=== PATIENT | female | born 1990 | race Caucasian/White ===

== ENCOUNTER → 2017-07-02 22:02 | Observation (INO) ==
--- NOTE | 2017-07-02 17:31 | OB/GYN Progress Note ---
Date of Encounter: 07/03/17 Time of Encounter: 06:30 - Assessment and Plan (1) Elevated blood pressure affecting in third trimester, antepartum Status: Acute Plan: - PIH labs negative - BP was not elevated here - instructions given to hydrate - Patient stable and safe for discharge - Instructions given for patient to continue was normal f/u with Dr. Mckeon as previously scheduled (2) 29 weeks gestation of Status: Acute (3) NST (non-stress test) reactive Status: Acute FHT baseline= 130, accelerations present (4) Clubbing of fingers Status: Acute clubbing of fingers with palmar erythema: unsure if palmar erythema is 2/2 to or associated with the clubbing of fingers - TSH to rule of hyperthyoidism -TSH normal - LOKESH and ESR for possible sarcoidosis/ other rheumatologic diseases - ESR normal for , LOKESH pending - Discussed with Dr. Bangura and he will discuss with the specialist to see which of them would be best to consult for this (5) Palmar erythema Status: Acute see above (6) and not yet delivered in third trimester Status: Acute Subjective - Subjective Principal diagnosis: elevated blood pressure Interval history: Patient's 19-year-old female at 29+1 weeks presented to the labor and delivery after having an elevated blood pressure of 140/80 in the office. Patient denies currently dizziness, headache, vision changes, or abdominal pain. Patient has had some episodes of seeing spots when going from sitting to standing and Patient did report an episode of dizziness and her heart beating fast after laying back in a recliner last night. Patient reports active movement. Patient denies vaginal bleeding, contractions, leakage of fluid. Of note patient did mention that her fingertips have been red on all finger tips and the palms of her hands red for the past couple of months. She does have a 10 year hx of smoking. No alcohol use in the last 12 months. No past medical history. Agree with above Chava Bangura note: She is a 19-year-old 29+ weeks who was sent over from the office due to some elevated blood pressures. Patient's blood pressure was stable on labor and delivery and at time she was not complaining of any lightheadedness or dizziness or scotoma. Patient was noted to have clubbing of all of her digits and redness to the distal portion of each finger. Pulse ox obtained and the patient showed that she was running around 94-95% on room air. She was feeling lightheaded or dizzy. She is a 10 year 1 pack a day smoker but has no other cardiac or pulmonary history. She states this started about 2 months ago had mentioned it to her OB office but nothing is really been done yet. We did run this by the hospitalists to see if there is anything related to order bleed recommended getting a rheumatology consult and ordering a sedimentation rate and lokesh. All [facility] labs have come back normal all labs are within normal limits. We will discuss with her primary OB about possible referral for this abnormality either to pulmonology, rheumatology, but even maternal medicine. Antepartum ROS: movement normal Objective - Vital Signs Vital Signs: BP: 119/81, O2: 96, afebrile - Exam FHR: category 1 FHR comments: FHR baseline =130 Auscultation: bilateral: normal Abdomen: Present: normal appearance, soft Uterus: Present: normal Comments: Extremities: palmar erythema bilaterally, clubbing with erythema of every finger tip, pedal exam unremarkable.
[2017-07-02 18:15] LABS: Basophils % 0.3 %; Eosinophils # 0.3 K/mcL (0.0-0.6); Eosinophils % 1.6 %; Hematocrit 36.3 % (35.3-44.9); Hemoglobin 12.3 g/dL (11.5-15.4); Immature Granulocytes % 1.4 % (0-4); Lymphocytes # 3.5 K/mcL (0.6-4.6); Lymphocytes % 22.6 %; Mean Corpuscular HGB Conc 33.9 g/dL (31.6-35.5); Mean Corpuscular Hemoglobin 30.2 pg (28.0-33.3); Mean Corpuscular Volume 89.2 fL (83.0-100.0); Mean Platelet Volume 11.7 fL (9.4-12.4); Monocytes # 0.9 K/mcL (0.0-1.3); Monocytes % 5.6 %; Neutrophils # 10.5 K/mcL (1.6-8.9); Platelet Count 246 K/mcL (140-400); Red Blood Count 4.07 M/mcL (3.82-4.97); Red Cell Distribution Width 12.6 % (11.5-14.5); Segmented Neutrophils % 68.5 %
[2017-07-02 18:42] LABS: Amphetamine Screen,Urine Negative ng/mL (Cutoff=1000); Barbiturate Screen,Urine Negative ng/mL (Cutoff=200); Benzodiazepines Screen,Urine Negative ng/mL (Cutoff=200); Cannabinoid Screen,Urine Negative ng/mL (Cutoff = 50); Cocaine Screen,Urine Negative ng/mL (Cutoff= 300); Opiate Screen,Urine Negative ng/mL (Cutoff=300); Phencyclidine Screen,Urine Negative ng/mL (Cutoff=25)
[2017-07-02 20:19] LABS: Creatinine,Urine 381 mg/dL; Protein/Creatinine Ratio,Urine 0.07 mg/mg (0.00-0.20)
[2017-07-02 21:06] LABS: Alanine Aminotransferase 6 Units/L (7-52); Aspartate Amino Transferase 11 Units/L (13-39); BUN/Creatinine Ratio 19 (6-26); Blood Urea Nitrogen 8 mg/dL (6-20); Lactate Dehydrogenase 130 Units/L (140-271); Uric Acid 4.4 mg/dL (2.3-7.6); eGFR For African Americans > 60 (> 60); eGFR For Non-African Americans > 60 (> 60)
[2017-07-05 13:45] LABS: ANA IgG by ELISA NONE DETECTED (None Detected)
== END | disposition home or self-care (01) ==
LOC: 1NENULAB
PROVIDERS: ADMIT Obstetrics & Gynecology; ATTEND Obstetrics & Gynecology

== ENCOUNTER → 2017-08-14 12:30 | Observation (INO) ==
[2017-08-14 09:39] LABS: Bilirubin,Urine Negative (Negative); Blood,Urine Negative (Negative); Clarity,Urine Cloudy (Clear); Color,Urine Yellow (Yellow); Glucose,Urine (UA) Normal (Normal); Ketones,Urine Negative (Negative); Leukocyte Esterase,Urine Small (Negative); Nitrite,Urine Negative (Negative); PH,Urine 6.5 pH Units (5.0-8.0); Protein,Urine Negative (Neg-Trace); Specific Gravity,Urine 1.026 (1.010-1.025); Urobilinogen,Urine Normal (Normal)
[2017-08-14 09:42] LABS: Bacteria,Urine Many per hpf (None-Few); Hyaline Casts,Urine None Seen per lpf (None-Few); Squamous Epithelial Cell,Urine Many per lpf (None-Few); WBC,Urine 15-30 per hpf (0-3)
[2017-08-14 09:55] LABS: RBC,Urine 0-3 per hpf (0-3)
[2017-08-14 09:57] LABS: Amphetamine Screen,Urine Negative ng/mL (Cutoff=1000); Barbiturate Screen,Urine Negative ng/mL (Cutoff=200); Benzodiazepines Screen,Urine Negative ng/mL (Cutoff=200); Cannabinoid Screen,Urine Negative ng/mL (Cutoff = 50); Cocaine Screen,Urine Negative ng/mL (Cutoff= 300); Opiate Screen,Urine Negative ng/mL (Cutoff=300); Phencyclidine Screen,Urine Negative ng/mL (Cutoff=25)
--- NOTE | 2017-08-14 10:21 | OB/GYN Progress Note ---
Date of Encounter: 08/14/17 Time of Encounter: 10:11 - Assessment and Plan (1) 35 weeks gestation of Current Visit: Yes Status: Acute (2) CVA tenderness Current Visit: Yes Status: Acute CBC ordered 1 L LR bolus ordered (3) Clubbing of fingers Current Visit: No Status: Acute (4) UTI (urinary tract infection) during Current Visit: Yes Status: Acute discharge home with nitrofurantoin follow up as scheduled increase hydration labor precautions given ok to discharge Qualifiers: Trimester: third trimester Qualified Code(s): O23.43 - Unspecified infection of urinary tract in , third trimester (5) Back pain affecting in third trimester Current Visit: Yes Status: Acute Subjective - Subjective Interval history: Ms. Abraham is a 27 yo at 35 weeks + 2 days GA with an JESSICA of 09/16/17. She presents today with complaints of low back pain since last night and anterior abdominal cramping. She endorses good movement and denies contractions, leakage of fluid, vaginal bleeding, headache, right upper quadrant pain. She does complain of some mild dysuria with urgency, frequency, and incomplete emptying of her bladder. Antepartum ROS: new complaints, movement normal Objective - Vital Signs Vital Signs: Intake and Output 08/13/17 08/14/17 08/14/17 23:59 07:59 15:59 Other: Weight 68 kg Patient Weight 08/14/17 23:59 Weight 68 kg - Exam FHR: auscultation normal, category 1 Auscultation: bilateral: normal Abdomen: Present: normal appearance, soft, gravid Uterus: Present: normal Cervical dilation: 0 Cervix effacement: 40 station: -3 Comments: Patient's physical exam is significant for left-sided CVA tenderness - Labs Labs: Abnormal lab results Urine Clarity Cloudy (Clear) A 08/14/17 08:30 Ur Specific [place] 1.026 (1.010-1.025) H 08/14/17 08:30 Ur Leukocyte Esterase Small (Negative) H 08/14/17 08:30 Urine Microscopic WBC 15-30 per hpf (0-3) H 08/14/17 08:30 Ur Squamous Epith Cells Many per lpf (None-Few) H 08/14/17 08:30 Urine Bacteria Many per hpf (None-Few) H 08/14/17 08:30
[2017-08-14 11:09] LABS: Basophils % 0.3 %; Eosinophils # 0.3 K/mcL (0.0-0.6); Eosinophils % 1.9 %; Hemoglobin 10.9 g/dL (11.5-15.4); Lymphocytes # 3.4 K/mcL (0.6-4.6); Lymphocytes % 24.6 %; Mean Corpuscular HGB Conc 32.1 g/dL (31.6-35.5); Mean Corpuscular Hemoglobin 27.8 pg (28.0-33.3); Mean Corpuscular Volume 86.7 fL (83.0-100.0); Mean Platelet Volume 12.8 fL (9.4-12.4); Monocytes # 0.9 K/mcL (0.0-1.3); Monocytes % 6.7 %; Neutrophils # 8.9 K/mcL (1.6-8.9); Nucleated Red Blood Cells 0.1 /100 WBC (0); Platelet Count 241 K/mcL (140-400); Red Blood Count 3.92 M/mcL (3.82-4.97); Red Cell Distribution Width 13.1 % (11.5-14.5); Segmented Neutrophils % 65.5 %
[~2017-08-14 12:30] MED LIST: Ringers Solution, Lactated 1,000 ML IVC ONE
== END | disposition home or self-care (01) ==
LOC: 1NENULAB
PROVIDERS: ADMIT Obstetrics & Gynecology; ATTEND Obstetrics & Gynecology

== ENCOUNTER → 2017-08-21 21:18 | Observation (INO) ==
--- NOTE | 2017-08-21 19:19 | OB/GYN Progress Note ---
Date of Encounter: 08/21/17 Time of Encounter: 19:17 - Assessment and Plan (1) Fall (on) (from) other stairs and steps, initial encounter Current Visit: Yes Status: Acute Pt denies complaints at this time. Will monitor at least 4 hours from time of the fall. KB, CBC, and fibrinogen ordered. (2) 36 weeks gestation of Current Visit: Yes Status: Acute (3) Rh negative state in antepartum period Current Visit: Yes Status: Acute Subjective - Subjective Interval history: 27 year-old presenting at 36w2d s/p falling down 4-5 steps at around 1730 this evening. She slid down the steps on the left side of her back. She was evaluated in ER and found to have no significant injuries so she was sent to L&D for monitoring. She denies leaking, bleeding, cramping, or other complaints at this time. Good FM. Antepartum ROS: new complaints (s/p fall), movement normal, no loss of fluid, no vaginal bleeding, no contractions Objective - Vital Signs Vital Signs: Intake and Output 08/21/17 08/21/17 08/21/17 07:59 15:59 23:59 Other: Weight 66.7 kg Patient Weight 08/21/17 23:59 Weight 66.7 kg - Exam FHR: category 1 FHR comments: 135 BPM reactive NST Auscultation: bilateral: normal Abdomen: Present: soft, gravid. Absent: tenderness Uterus: Absent: tenderness
[2017-08-21 19:41] LABS: Basophils % 0.3 %; Eosinophils # 0.2 K/mcL (0.0-0.6); Eosinophils % 1.5 %; Hematocrit 34.6 % (35.3-44.9); Hemoglobin 11.2 g/dL (11.5-15.4); Immature Granulocytes % 1.2 % (0-4); Lymphocytes # 3.9 K/mcL (0.6-4.6); Mean Corpuscular HGB Conc 32.4 g/dL (31.6-35.5); Mean Corpuscular Hemoglobin 27.9 pg (28.0-33.3); Mean Corpuscular Volume 86.3 fL (83.0-100.0); Mean Platelet Volume 12.3 fL (9.4-12.4); Monocytes # 1.1 K/mcL (0.0-1.3); Monocytes % 7.2 %; Neutrophils # 9.5 K/mcL (1.6-8.9); Platelet Count 247 K/mcL (140-400); Red Blood Count 4.01 M/mcL (3.82-4.97); Segmented Neutrophils % 63.8 %
== END | disposition home or self-care (01) ==
LOC: 1NENULAB
PROVIDERS: ADMIT Registered Nurse; ATTEND Registered Nurse

== ENCOUNTER → 2017-09-02 16:35 | Observation (INO) ==
[2017-09-02 16:23] LABS: Amphetamine Screen,Urine Negative ng/mL (Cutoff=1000); Barbiturate Screen,Urine Negative ng/mL (Cutoff=200); Benzodiazepines Screen,Urine Negative ng/mL (Cutoff=200); Cannabinoid Screen,Urine Negative ng/mL (Cutoff = 50); Cocaine Screen,Urine Negative ng/mL (Cutoff= 300); Opiate Screen,Urine Negative ng/mL (Cutoff=300); Phencyclidine Screen,Urine Negative ng/mL (Cutoff=25)
--- NOTE | 2017-09-02 16:24 | OB/GYN Progress Note ---
Date of Encounter: 09/02/17 Time of Encounter: 16:22 - Assessment and Plan (1) 38 weeks gestation of Current Visit: Yes Status: Acute (2) False labor after 37 completed weeks of gestation Current Visit: Yes Status: Acute No change on serial cervical exam GBS done since not done office Discharged call with went to return to triage precautions. Patient verbalizes understanding (3) Clubbing of fingers Current Visit: No Status: Acute Patient following with PCP and Dr. Mckeon Subjective - Subjective Interval history: 38+0 weeks gestation presents to triage for labor evaluation. Patient states she is not sure if she is in labor feels an occasional abdominal cramping and tightness off and on since this morning. reports good movement, denies vaginal bleeding or leaking of fluid. Antepartum ROS: movement normal, contractions, no loss of fluid, no vaginal bleeding Objective - Vital Signs Vital Signs: Intake and Output 09/02/17 09/02/17 09/02/17 07:59 15:59 23:59 Other: Weight 70.6 kg Patient Weight 09/02/17 23:59 Weight 70.6 kg - Exam FHR: auscultation normal FHR comments: Baseline 135 Abdomen: Present: normal appearance, soft Cervical dilation: 50/-2
== END | disposition home or self-care (01) ==
LOC: 1NENULAB
PROVIDERS: ADMIT Obstetrics & Gynecology; ATTEND Obstetrics & Gynecology

== ENCOUNTER → 2017-09-07 13:19 | Observation (INO) ==
--- NOTE | 2017-09-07 12:13 | OB/GYN Progress Note ---
Date of Encounter: 09/07/17 Time of Encounter: 12:11 - Assessment and Plan (1) Uterine contractions Current Visit: Yes Status: Acute Will monitor for cervical change, if no change will discharge home with when to return to triage precautions. Discussed with Dr. Pereyra. (2) 38 weeks gestation of Current Visit: No Status: Acute Subjective - Subjective Interval history: Pt to [facility] for evaluation with complaints of uterine contractions since midnight. Pt reports good movement, denies vaginal bleeding or leaking of fluid. Antepartum ROS: movement normal, contractions, no loss of fluid Objective - Vital Signs Vital Signs: Intake and Output 09/06/17 09/07/17 09/07/17 23:59 07:59 15:59 Other: Weight 70.9 kg Patient Weight 09/07/17 23:59 Weight 70.9 kg - Exam FHR: auscultation normal Auscultation: bilateral: normal Abdomen: Present: normal appearance, soft, gravid Uterus: Present: normal Cervical dilation: 4/80 per RN
== END | disposition home or self-care (01) ==
LOC: 1NENULAB
PROVIDERS: ADMIT Advanced Practice Midwife; ATTEND Advanced Practice Midwife

== ENCOUNTER 2017-09-08 22:06 | Inpatient (IN) ==
--- NOTE | 2017-09-08 22:03 | OB/GYN History & Physical ---
Date of Encounter: 09/08/17 Time of Encounter: 22:02 Assessment and Plan (1) Rupture of membranes with clear amniotic fluid Current visit: Yes Status: Acute + nitrazine and ferning Admit to labor and delivery nubain and epidural as desired anticipate Dr. Bangura made aware of admission and plan of care (2) 38 weeks gestation of Current visit: No Status: Acute (3) Clubbing of fingers Current visit: No Status: Acute History of Present Illness Chief complaint: Contractions HPI: Ms. Abraham is a 27 year old female 38+6 presents to triage with complaints of increasing contractions since 3pm. Pt has been having contractions for the last week with multiple labor evaluations. Pt states at 2030 she felt a tearing sensation and began to leak fluid. Reports good movement, denies vaginal bleeding. complicated by noted finger clubbing bilat x10, elevated carboxyhemoglobin levels, from unknown orgin. Last level was WNL. EKG WNL, CT showed 5mm lung nodule pt scheduled to see specialist at [facility]. Pt scheduled for echo in AM. Labs: A-, Rubella and Varicella immune, GBS negative, all other serologies negative. Past Med Surg Social Fam HX - Past Medical History Medical history: other Psychiatric history: no psych history - Past Surgical History Surgical History: other - Social History Smoking Status: Current every day smoker Smokeless Tobacco Status: No Alcohol use: none Drug use: none - Family History Father Adopted: No Family Member Ethnicity: Non- Living Status: Still Living Hx Family Cardiac Disorders: Yes (hypertension) Hx Family Respiratory Disorders: No Hx Family Cancer: Yes (lung cancer) Hx Family GI Disorders: No Hx Family Endocrine Disorder: No Hx Family Neuromuscular Disorders: No Hx Family Neurologic Disorders: No Hx Family HEENT Disorders: No Hx Family Autoimmune Disorders: No Obstetrical History - Pregnancies : 2 Para: 1 Term: 0 : 1 Ab's: 0 Livin Medications and Allergies Multivitamin [Flintstones] 1 each PO DAILY 07/02/17 [History] 3 Allergy/AdvReac Type Severity Reaction Status Date / Time No Known Allergies Allergy Verified 09/08/17 22:02 Exam - Constitutional Constitutional: well developed, well nourished, no acute distress, average body habitus - Neck Neck exam: full ROM - Cardiovascular Cardiovascular exam: RRR - Abdomen Abdomen: Present: gravid, non tender - Extremities Extremities exam: normal capillary refill (Clubbing noted to fingers. ) - Vagina Vagina: Present: normal moisture - Cervix Dilation: 5 Effacement: 80 Results All other labs normal.
[~2017-09-08 22:06] MED LIST changes: +*HR* Nalbuphine 10 MG/ML AMPUL IVP PRN; +Famotidine 20 MG/2 ML VIAL IVP PRN; +Lidocaine 1% 20 ML MDV INFILT PRN; +Metoclopramide 10 MG/2 ML VIAL IVP PRN; +Naloxone 0.4 MG/ML INJ IVP PRN; +Ondansetron 4 MG/2 ML VIAL IVP PRN; -Ringers Solution, Lactated 1,000 ML IVC ONE
[2017-09-08] MEDS ORDERED: Ringers Solution, Lactated 1,000 ML IVC SCH (22:15)
[2017-09-08 22:33] LABS: Basophils % 0.2 %; Eosinophils % 1.5 %; Hematocrit 33.1 % (35.3-44.9); Hemoglobin 10.8 g/dL (11.5-15.4); Immature Granulocytes % 0.8 % (0-4); Lymphocytes % 30.7 %; Mean Corpuscular HGB Conc 32.6 g/dL (31.6-35.5); Mean Corpuscular Hemoglobin 27.7 pg (28.0-33.3); Mean Corpuscular Volume 84.9 fL (83.0-100.0); Mean Platelet Volume 12.6 fL (9.4-12.4); Monocytes % 9.2 %; Platelet Count 228 K/mcL (140-400); Red Cell Distribution Width 13.5 % (11.5-14.5); Segmented Neutrophils % 57.6 %
[2017-09-08 22:34] LABS: Eosinophils # 0.2 K/mcL (0.0-0.6); Lymphocytes # 3.9 K/mcL (0.6-4.6); Monocytes # 1.2 K/mcL (0.0-1.3); Neutrophils # 7.2 K/mcL (1.6-8.9)
[2017-09-08 22:43] LABS: Amphetamine Screen,Urine Negative ng/mL (Cutoff=1000); Barbiturate Screen,Urine Negative ng/mL (Cutoff=200); Benzodiazepines Screen,Urine Negative ng/mL (Cutoff=200); Cannabinoid Screen,Urine Negative ng/mL (Cutoff = 50); Cocaine Screen,Urine Negative ng/mL (Cutoff= 300); Opiate Screen,Urine Positive ng/mL (Cutoff=300); Phencyclidine Screen,Urine Negative ng/mL (Cutoff=25)
[2017-09-08] MEDS ORDERED: Oxytocin 20 units/ LR 1000 mL 20 UNIT/1,000 ML BAG IVC SCH (22:45)
[2017-09-08] MEDS ORDERED: EPHEDrine 50 MG/ML VIAL IVP PRN (23:11)
[2017-09-08] MEDS ORDERED: Ringers Solution, Lactated 500 ML IVC ONE (23:11)
[2017-09-08] MEDS ORDERED: Epidural Premix (fent/bupiv) 110 ML EP ONE (23:15)
[2017-09-08] MEDS ORDERED: Epidural Premix (fent/bupiv) 110 ML EP SCH (23:15)
--- NOTE | 2017-09-08 23:58 | Anesthesia Evaluation PreOp ---
Date of Encounter: 09/08/17 Time of Encounter: 23:56 - Past History Planned Operation: IVONE Cardiac History: Denies any Significant Hx Pulmonary History: Smoker, Other (dx with RUL nodule. states she has follow-up with further testing - was held d/t .) [employer] History: Denies Any Significant HX Other Medical History: Denies Any Significant HX Anesthesia History: No Prior Anesthetic Complications, Past Anesthesia Alcohol Use: none Drug use: none Medications and Allergies Multivitamin [Flintstones] 1 each PO DAILY 07/02/17 [History] 3 Allergy/AdvReac Type Severity Reaction Status Date / Time No Known Allergies Allergy Verified 09/08/17 22:02 - Meds/Allergy Pre-op Review Medications Reviewed: Yes Allergies Reviewed: Yes Beta Blockers on Current Med List: No Anesthesia Results - Labs 09/08/17 22:18 Anesthesia Exam O2 Sat Height 1.57 m Weight 72 kg NPO (# of Hours): 6 Pain Scale: 8 Pain Scale Used: Numeric (1 - 10) - HEENT Pupil (Motor): Pupils equal Mallampati: II Teeth: Normal Oral Opening: Greater than 3 - [employer] LOC: Oriented [employer] Motor: Normal RUE, Normal LUE, Normal RLE, Normal LLE, Normal Face [employer]ER Sensory: Normal: RUE, LUE, RLE, LLE, Face - Cardiac Rhythm: Regular Murmur: None JVD: No Carotid Bruit: No - Pulmonary Breath Sounds: bilateral Clear Respiratory Effort: Symmetrical Anesthesia Assess/Plan ASA Score: 2 Modified [place] Scale for Level of Consciousness: Cooperative, oriented, and tranquil Anesthetic Plan: General (plan b), Regional (plan a) Autologous Blood: Yes Monitoring Plan: Standard Monitors
--- NOTE | 2017-09-08 23:59 | Anesthesia Procedures ---
Date of Encounter: 09/08/17 Time of Encounter: 23:58 Procedures: Anesthesia - Epidural/Spinal Patient ID/Chart reviewed: Yes Patient examined: Yes OB Eval: Gestational age: term OB Eval: : 2 OB Eval: Hx Para: 1 OB Eval: Dilated at (cm): 5 OB Eval: Contractions: Non-stressed pattern Consent Obtained: Yes Supplemental Oxygen: None/Room Air Site Prep: Aseptic Technique, Sterile prep and drape, Povidone-Iodine 1% Patient position: upright Local Anesthetic: Lidocaine 1% Amount of Local Anesthetic used: 3 Touhy Needle Gauge: 18 Touhy Needle Depth (cm): 7 Catheter Depth at Skin (cm): 20 Test Dose (1.5% Lido + Epi): Volume given (mls): 5 Test Dose Result: Negative Loading Dose: Other: 10mls of epidural pharm bag premix solution Loading Dose Administered: Thru Catheter Infusion Med: 0.125% Bupivacaine w/ 2 mcg/ml Fentanyl Infusion Rate (mls/hr): 14 ([id number] [id number]) Catheter Secured in Place: Tegaderm, Tape Interspace Used: L3-L4 Loss of Resistance (SHYLA): Yes Blood: No CSF: No Paresthesia: No Procedure: pt tolerated procedure well. no complications. vss. fhr stable. see nursing notes for full vitals.
[2017-09-09] MEDS ORDERED: *HR* Ropivacaine/PF 0.2% 20 ML VIAL ONE (03:09)
[2017-09-09] MEDS ORDERED: *HR* FentaNYL (PF) 100 MCG/2 ML VIAL ONE (03:09)
--- NOTE | 2017-09-09 04:31 | OB Labor Progress Note ---
Date of Encounter: 09/09/17 Time of Encounter: 04:28 Labor Progress Note - Subjective Subjective: Pt comfortable with epidural - Cervix Cervix: 9/100/0 - Heart Tones Heart Tones: 130/moderate/+accels/-decels - [place] Chuichu: 2-3 - Interventions Interventions: AROM of forebag - Plan Plan: Continue pitocin per policy frequent repositioning Anticipate
[2017-09-09] MEDS ORDERED: Epidural Premix (fent/bupiv) 110 ML EP ONE (04:53)
--- NOTE | 2017-09-09 05:38 | OB/GYN Procedure Note ---
Delivery - Delivery Date: 09/09/17 Provider: Cheyanne Mccrary Intrapartum events: meconium Delivery augmentation: pitocin Delivery monitor: external FHT, external uterine Anesthesia: epidural Estimated Blood Loss: 200 - (s) A Delivery Date: 09/09/17 Infant Delivery Time: 05:02 Presentation: vertex Position: OA Route of delivery: Gender: Female Viability: Viable Pounds: 6 Ounces: 13 Weight Gram: 3085 kg at 1 minute: 8 at 5 mins: 9 Shoulder Dystocia: not encountered Specimens collected: cord blood Placenta: spontaneous Cord: nuchal cord, 3 umbilical vessels, delivered through nuchal - Repair Episiotomy: none Laceration Description: Perineal - 2nd Degree - Complications Delivery complications: none, meconium Delivery comments: admitted for labor with SROM. Pitocin augmentation, progressed to complete, maternal bearing down efforts to of liveborn female. Vertex delivered OA, nuchal cord identified, delivered through nuchal, shoulders and body easily followed after maternal repositioning and effort. Meconium noted in fluid at delivery. Vigorous infant placed on maternal abdomen, APGARS 8/9. Placenta delivered spontaneously (jackie) complete upon inspection. Second degree perineal laceration repaired with 3-0 vycril. EBL 200. Mother and infant left bonding skin to skin. - Disposition Mom disposition: stable in LDR disposition: stable in LDR
--- NOTE | 2017-09-09 06:33 | Anesthesia Progress Note ---
Date of Encounter: 09/09/17 Time of Encounter: 03:00 Anesthesia Note - Note Note: 09/09/17 06:33 called for increased pain during contractions. bolus given of 8ml of 0.2% ropivacaine. 100mg fentanyl. vss. fhr stable.
[2017-09-09] MEDS ORDERED: Lanolin 7 G OINT...G. TP PRN (08:21)
[2017-09-09] MEDS ORDERED: Oxytocin 20 units/ LR 1000 mL 20 UNIT/1,000 ML BAG IVC SCH (08:21)
[2017-09-09] MEDS ORDERED: Rho Immune Globulin 1,500 UNIT SYRINGE IM PRN (08:21)
[2017-09-09] MEDS ORDERED: Benzocaine/Menthol 56 GM AEROSOL SPRAY TP PRN (08:21)
[2017-09-09] MEDS ORDERED: Acetaminophen 325 MG TABLET PO PRN (08:21)
[2017-09-09] MEDS ORDERED: Prenatal Vit/FA 1 EACH TABLET PO SCH (09:00)
[2017-09-09] MEDS: Ibuprofen 600 MG TABLET PO PRN (15:40)
[2017-09-10 04:50] LABS: Basophils % 0.3 %; Eosinophils # 0.2 K/mcL (0.0-0.6); Hematocrit 29.1 % (35.3-44.9); Hemoglobin 9.3 g/dL (11.5-15.4); Immature Granulocytes % 0.5 % (0-4); Lymphocytes # 4.2 K/mcL (0.6-4.6); Lymphocytes % 36.1 %; Mean Corpuscular Hemoglobin 27.6 pg (28.0-33.3); Mean Corpuscular Volume 86.4 fL (83.0-100.0); Mean Platelet Volume 13.2 fL (9.4-12.4); Monocytes # 0.9 K/mcL (0.0-1.3); Monocytes % 7.3 %; Neutrophils # 6.2 K/mcL (1.6-8.9); Nucleated Red Blood Cells 0.2 /100 WBC (0); Platelet Count 189 K/mcL (140-400); Red Blood Count 3.37 M/mcL (3.82-4.97); Red Cell Distribution Width 13.6 % (11.5-14.5); Segmented Neutrophils % 53.8 %
[2017-09-10 07:55] VITALS: BP 93/54
--- NOTE | 2017-09-10 08:28 | Discharge Summary ---
Date of Encounter: 09/10/17 Time of Encounter: 08:25 - Discharge Diagnosis (1) Clubbing of fingers Priority: Secondary Status: Acute Comments: follow up with PCP (2) Vaginal delivery Priority: Primary Status: Acute Comments: Continue routine care discharge home today follow up with Dr. Mckeon in 4-6 weeks - Discharge Medications Prescriptions: Ibuprofen [Motrin] 600 mg PO Q6HR PRN #60 tablet PRN Reason: Cramping Home Medications: Multivitamin [Flintstones] 1 each PO DAILY 07/02/17 [History] Benzocaine/Menthol [place] [Dermoplast [place]] 1 appl TP QID PRN aerosol 09/10/17 [Rx] Docusate [Colace] 100 mg PO BID capsule 09/10/17 [Rx] Ferrous Sulfate 325 mg PO DAILY tablet 09/10/17 [Rx] Ibuprofen [Motrin] 600 mg PO Q6HR PRN #60 tablet 09/10/17 [Rx] Vit/FA 1 each PO DAILY tablet 09/10/17 [Rx] Allergies/Adverse Reactions: 3 Allergy/AdvReac Type Severity Reaction Status Date / Time No Known Allergies Allergy Verified 09/08/17 22:02 Data Procedures and tests throughout hospitalization: Laboratory Tests 09/08/17 09/08/17 09/09/17 22:18 22:18 06:00 WBC 12.6 H RBC 3.90 Hgb 10.8 L Hct 33.1 L MCV 84.9 MCH 27.7 L MCHC 32.6 RDW 13.5 Plt Count 228 MPV 12.6 H Immature Gran % 0.8 Seg Neutrophils % 57.6 Lymphocytes % 30.7 Monocytes % 9.2 Eosinophils % 1.5 Basophils % 0.2 Neutrophils # 7.2 Lymphocytes # 3.9 Monocytes # 1.2 Eosinophils # 0.2 Basophils # 0.0 Nucleated RBCs/100 WBC Urine Opiates Screen Positive H Ur Barbiturates Screen Negative Ur Phencyclidine Scrn Negative Ur Amphetamines Screen Negative U Benzodiazepines Scrn Negative Urine Cocaine Screen Negative U Marijuana (THC) Screen Negative Baby's Blood Type O RH NEGATIVE Mother's Blood Type A RH NEGATIVE Rhogam Indicated NO 09/10/17 04:04 WBC 11.6 H RBC 3.37 L Hgb 9.3 L D Hct 29.1 L MCV 86.4 MCH 27.6 L MCHC 32.0 RDW 13.6 Plt Count 189 MPV 13.2 H Immature Gran % 0.5 Seg Neutrophils % 53.8 Lymphocytes % 36.1 Monocytes % 7.3 Eosinophils % 2.0 Basophils % 0.3 Neutrophils # 6.2 Lymphocytes # 4.2 Monocytes # 0.9 Eosinophils # 0.2 Basophils # 0.0 Nucleated RBCs/100 WBC 0.2 H Urine Opiates Screen Ur Barbiturates Screen Ur Phencyclidine Scrn Ur Amphetamines Screen U Benzodiazepines Scrn Urine Cocaine Screen U Marijuana (THC) Screen Baby's Blood Type Mother's Blood Type Rhogam Indicated Labs on day of discharge: Labs from last 24 hours 09/10/17 09/09/17 04:04 06:00 WBC 11.6 H RBC 3.37 L Hgb 9.3 L D Hct 29.1 L MCV 86.4 MCH 27.6 L MCHC 32.0 RDW 13.6 Plt Count 189 MPV 13.2 H Immature Gran % 0.5 Seg Neutrophils % 53.8 Lymphocytes % 36.1 Monocytes % 7.3 Eosinophils % 2.0 Basophils % 0.3 Neutrophils # 6.2 Lymphocytes # 4.2 Monocytes # 0.9 Eosinophils # 0.2 Basophils # 0.0 Nucleated RBCs/100 WBC 0.2 H Rhogam Indicated NO Date of admission: 09/08/17 22:06 Primary care physician: Pascual Mcpherson DO Consults: 09/09/17 08:21 Consult to Cook Apprentice [CONS] Routine Comment: Vaginal delivery, consult needed Discharging clinician: Hawa Nichols Anticipated date of discharge: 09/10/17 - Patient Status Disposition: Home, Self-Care Condition: Good Functional capacity at discharge: independent ambulation - Discharge Instructions Follow Up With: Pascual Mcpherson DO [Primary Care Provider] - Jes Mckeon MD [Partnered Physician] - - Diet and Activity Activity: increase activity as tolerated Diet: regular diet Hospital Course Reason for admission: active labor Delivery: Episiotomy: none Laceration: 2nd degree Other procedures: none complications: none Discharge diagnosis: IUP at term delivered Star baby: female (bottle feeding) Time Attestation: Total time spent providing and/or coordinating discharge services: Time Spent: Less than 30 minutes Exam - Constitutional Vitals: Temp Pulse Resp BP Pulse Ox 98.6 F 86 16 93/54 97 09/10/17 07:54 09/10/17 07:54 09/10/17 07:54 09/10/17 07:54 09/10/17 07:54 General appearance IM: A&O X 3, pleasant, answers questions appropriately - Respiratory Respiratory exam: Present: CTAB - Cardiovascular Cardiovascular exam IM: Present: RRR, +S1, +S2 - GI/Abdominal GI/Abdominal exam IM: normal bowel sounds - Uterine Tone: Firm Uterus Position: 1 Finger Below Umbilicus, Midline - Extremities Exam Extremities exam IM: Present: full ROM, normal capillary refill, normal inspection - Neurological Exam Neurological exam: alert, oriented X3, reflexes normal
[2017-09-10] MEDS: Ibuprofen 600 MG TABLET PO PRN (08:54)
== END 2017-09-10 11:10 | disposition home or self-care (01) | DRG 560 ==
LOC: 1NENULAB → 1NENUOBS 09-09 08:01
PROVIDERS: ADMIT Advanced Practice Midwife; ATTEND Advanced Practice Midwife

== ENCOUNTER → 2018-10-06 18:07 | Observation (INO) ==
[2018-10-06 16:08] LABS: Amphetamine Screen,Urine Negative ng/mL (Cutoff=1000); Barbiturate Screen,Urine Negative ng/mL (Cutoff=200); Benzodiazepines Screen,Urine Negative ng/mL (Cutoff=200); Cannabinoid Screen,Urine Negative ng/mL (Cutoff = 50); Cocaine Screen,Urine Negative ng/mL (Cutoff= 300); Opiate Screen,Urine Negative ng/mL (Cutoff=300); Phencyclidine Screen,Urine Negative ng/mL (Cutoff=25)
[~2018-10-06 18:07] MED LIST changes: -*HR* Nalbuphine 10 MG/ML AMPUL IVP PRN; -Famotidine 20 MG/2 ML VIAL IVP PRN; -Lidocaine 1% 20 ML MDV INFILT PRN; -Metoclopramide 10 MG/2 ML VIAL IVP PRN; -Naloxone 0.4 MG/ML INJ IVP PRN; -Ondansetron 4 MG/2 ML VIAL IVP PRN; +Ringer's Solution, Lactated 250 ML IV.SOLN IVC ONE; +Ringers Solution, Lactated 500 ML ONE
--- NOTE | 2018-10-06 18:11 | OB/GYN Progress Note ---
Date of Encounter: 10/06/18 Time of Encounter: 18:09 - Assessment and Plan (1) and not yet delivered in third trimester Status: Acute (2) 34 weeks gestation of Status: Acute (3) Gestational diabetes Status: Acute Qualifiers: Gestational diabetes mellitus control: diet-controlled Trimester: third trimester Qualified Code(s): O24.410 - Gestational diabetes mellitus in , diet controlled (4) uterine contractions in third trimester, antepartum Status: Acute IV bolus given contractions spaced out Subjective - Subjective Interval history: She is a 28-year-old 3 para 1102 at 34 and 0 seconds weeks who presented to labor and delivery for prolonged monitoring secondary to an NST performed in the office which had low baseline. Patient is a gestational diabetic A1 and has been coming in weekly for her NSTs NST today was 110 but reactive but because of the low baseline compared to previous NSTs she was sent over for some prolonged monitoring patient's blood sugar on admission was in the 80s we did give her something to drink baseline did increase to 120s and strip became reactive patient went to the bathroom to urinate when she came back to bed patient started having contractions she was yonathan every 2-3 minutes but was not feeling anything we did give patient a IV bolus 500 mL of lactated Ringer's contractions did space out she was having occasional months still not feeling anything we did check the patient no cervical change noted patient is scheduled to return to the office next week labor precautions was given. Antepartum ROS: contractions, other (low baseline) Objective - Vital Signs Vital Signs: Intake and Output 10/06/18 10/06/18 10/06/18 07:59 15:59 23:59 Other: Weight 66.7 kg Patient Weight 10/06/18 23:59 Weight 66.7 kg - Exam FHR: category 1 FHR comments: heart tones 140s reactive occasional contractions seen Cervical dilation: cl Cervix effacement: 50 station: ballotable
== END | disposition home or self-care (01) ==
LOC: 1NENULAB
PROVIDERS: ADMIT Obstetrics & Gynecology; ATTEND Obstetrics & Gynecology

== ENCOUNTER → 2018-11-08 13:41 | Observation (INO) ==
[2018-11-08 12:39] LABS: Amphetamine Screen,Urine Negative ng/mL (Cutoff=1000); Barbiturate Screen,Urine Negative ng/mL (Cutoff=200); Benzodiazepines Screen,Urine Negative ng/mL (Cutoff=200); Cannabinoid Screen,Urine Negative ng/mL (Cutoff = 50); Cocaine Screen,Urine Negative ng/mL (Cutoff= 300); Opiate Screen,Urine Negative ng/mL (Cutoff=300); Phencyclidine Screen,Urine Negative ng/mL (Cutoff=25)
--- NOTE | 2018-11-08 13:33 | Discharge Summary ---
Date of Encounter: 11/08/18 Time of Encounter: 13:34 - Discharge Diagnosis (1) 38 weeks gestation of Priority: Primary Status: Acute Comments: admitted for observation false labor (2) NST (non-stress test) reactive on surveillance Priority: Secondary Status: Acute Comments: FHR [id number] bpm moderate variability +15x15 accels no decels noted. cat 1 tracing. - Discharge Medications Prescriptions: No Action Vit/FA 1 each PO DAILY tablet Buprenorphine HCl [Subutex] 8 mg SL BID Home Medications: Vit/FA 1 each PO DAILY tablet 09/10/17 [Rx] Buprenorphine HCl [Subutex] 8 mg SL BID 10/06/18 [History] Allergies/Adverse Reactions: Allergy/AdvReac Type Severity Reaction Status Date / Time No Known Allergies Allergy Verified 09/08/17 22:02 Data Procedures and tests throughout hospitalization: Laboratory Tests 11/08/18 12:20 Urine Opiates Screen Negative Ur Barbiturates Screen Negative Ur Phencyclidine Scrn Negative Ur Amphetamines Screen Negative U Benzodiazepines Scrn Negative Urine Cocaine Screen Negative U Marijuana (THC) Screen Negative Ur Drug Screen Interp See Below Labs on day of discharge: Labs from last 24 hours 11/08/18 12:20 Urine Opiates Screen Negative Ur Barbiturates Screen Negative Ur Phencyclidine Scrn Negative Ur Amphetamines Screen Negative U Benzodiazepines Scrn Negative Urine Cocaine Screen Negative U Marijuana (THC) Screen Negative Ur Drug Screen Interp See Below Date of admission: 11/08/18 10:40 Discharging clinician: Hawa Nichols Anticipated date of discharge: 11/08/18 - Patient Status Disposition: Home, Self-Care Condition: Good Functional capacity at discharge: independent ambulation - Discharge Instructions Follow Up With: Mynor Bangura DO [Partnered Physician] - - Diet and Activity Activity: increase activity as tolerated 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 Patient reports regular contractions without leaking or VB. Patient reports good movement. Time Attestation: Total time spent providing and/or coordinating discharge services: Time Spent: Less than 30 minutes Exam - Constitutional General appearance IM: A&O X 3, pleasant, answers questions appropriately - Respiratory Respiratory exam: Present: CTAB - Cardiovascular Cardiovascular exam IM: Present: RRR, +S1, +S2 - Other Additional findings: FHT 120 bpm moderate variability +15x15 accels no decels noted. Contractions 5-7 min apart. Cat. 1 tracing. SVE 4/80/-1 no cervical change after 2 hours of observations. - VTE Reasons for not Prescribing Prophylaxis: Treatment not Indicated - Low risk for VTE
== END | disposition home or self-care (01) ==
LOC: 1NENULAB
PROVIDERS: ADMIT Obstetrics & Gynecology; ATTEND Obstetrics & Gynecology

== ENCOUNTER 2018-11-10 08:00 | Inpatient (IN) ==
[2018-11-10] MEDS ORDERED: Naloxone 0.4 MG/ML INJ IVP PRN (08:04)
[2018-11-10] MEDS ORDERED: Metoclopramide 10 MG/2 ML VIAL IVP PRN (08:04)
[2018-11-10] MEDS ORDERED: Famotidine 20 MG/2 ML VIAL IVP PRN (08:04)
[2018-11-10] MEDS ORDERED: Ondansetron 4 MG/2 ML VIAL IVP PRN (08:04)
[2018-11-10] MEDS ORDERED: Ringers Solution, Lactated 1,000 ML ONE (08:27)
[2018-11-10] MEDS: Ringers Solution, Lactated 1,000 ML IVC SCH ×2 (08:28→09:25)
--- NOTE | 2018-11-10 08:41 | OB/GYN History & Physical ---
Date of Encounter: 11/10/18 Time of Encounter: 08:37 Assessment and Plan (1) and not yet delivered in third trimester Current visit: Yes Status: Acute (2) 39 weeks gestation of Current visit: Yes Status: Acute (3) Gestational diabetes Current visit: Yes Status: Acute Qualifiers: Gestational diabetes mellitus control: diet-controlled Trimester: third trimester Qualified Code(s): O24.410 - Gestational diabetes mellitus in , diet controlled (4) Active labor at term Current visit: Yes Status: Acute Patient will be observed she makes no additional cervical change we will augment with Pitocin plan is to anticipate vaginal delivery History of Present Illness HPI: Ms. Abraham is a 28 year old female 3 para 1102 at 39-0/7 weeks who presented for induction of labor secondary to with favorable cervix. Patient is an A1 gestational diabetic has not and bring her logs on a regular basis which she did bring in were within normal limits. We have been doing weekly NSTs have all been reassuring. Did advise patient because she has not been producing her logs on her we could basis that wants wanted to 39 weeks would go ahead and deliver her. The patient is also on Subutex and has been in group through the doing well. Patient was seen over the weekend for contractions she was observed had made a little bit cervical change from her office visit but not enough to justify keeping her and she was discharged home. She states she has been yonathan all day yesterday and through the evening. Denies any leaking of fluid and is still having good movement. Patient is wanting a tubal ligation. Tubal papers were signed back in August. Patient is A-, rubella positive, GBS negative, Varicella negative. Past Med Surg Social Fam HX - Past Medical History Source: patient, old records reviewed Medical history: other Additional medical history: nodule on upper right lung, early s/s of COPD, clubbed fingernails Psychiatric history: no psych history - Past Surgical History Surgical History: other Additional surgical history: right ovary removed after 1st delivery - Social History Smoking Status: Current every day smoker Packs per day: 1 Smokeless Tobacco Status: No Alcohol use: none Drug use: other Occupational status: unemployed Current living situation: Home - Independent Activity Level: Independent ambulation Recent Out of Country Travel Within the Last 8 Weeks: No Exposure or Possible Exposure to Illness During Travel: No - Family History Father Adopted: No Family Member Ethnicity: Non- Living Status: Still Living Hx Family Cardiac Disorders: Yes (htn) Hx Family Respiratory Disorders: No Hx Family Cancer: No Hx Family GI Disorders: Yes (GI Bleed) Hx Family Endocrine Disorder: No Hx Family Neuromuscular Disorders: No Hx Family Neurologic Disorders: No Hx Family HEENT Disorders: No Hx Family Autoimmune Disorders: No - Additional Family History Additional family history: Family history noncontributory Obstetrical History - Pregnancies : 3 Para: 2 Term: 1 : 1 Ab's: 0 Livin Medications and Allergies Vit/FA 1 each PO DAILY tablet 09/10/17 [Rx] Buprenorphine HCl [Subutex] 8 mg SL BID 10/06/18 [History] Allergy/AdvReac Type Severity Reaction Status Date / Time No Known Allergies Allergy Verified 11/10/18 08:25 Review of System OB All systems PM: reviewed and no additional remarkable complaints except as stated - Menstruation Menstruation: other (is complaining of occasional contractions.) Exam - Constitutional Constitutional: well developed, well nourished, no acute distress - HEENT HEENT: EOMI, PERRL - Neck Neck exam: full ROM - Lungs Respiratory exam: CTAB - Cardiovascular Cardiovascular exam: RRR - Abdomen Abdomen: Present: bowel sounds normal, gravid (Heart tones down in the 90s but reactive when placed initially on the monitor positional changes did increase heart tones back up to the 120s 130s no decelerations seen.) - Cervix Dilation: 6 Effacement: 90 Station: 0 (Patient was artificially ruptured clear fluid noted scalp monitor placed) Results All other labs normal. - VTE Reasons for not Prescribing Prophylaxis: Treatment not Indicated - Low risk for VTE
[2018-11-10 08:56] LABS: Basophils % 0.4 %; Eosinophils # 0.2 K/mcL (0.0-0.6); Hematocrit 35.3 % (35.3-44.9); Hemoglobin 11.1 g/dL (11.5-15.4); Immature Granulocytes % 0.8 % (0-4); Lymphocytes # 2.8 K/mcL (0.6-4.6); Lymphocytes % 28.9 %; Mean Corpuscular HGB Conc 31.4 g/dL (31.6-35.5); Mean Corpuscular Hemoglobin 24.6 pg (28.0-33.3); Mean Corpuscular Volume 78.3 fL (83.0-100.0); Mean Platelet Volume 12.2 fL (9.4-12.4); Monocytes # 0.7 K/mcL (0.0-1.3); Monocytes % 6.8 %; Neutrophils # 5.9 K/mcL (1.6-8.9); Platelet Count 261 K/mcL (140-400); Red Blood Count 4.51 M/mcL (3.82-4.97); Red Cell Distribution Width 14.8 % (11.5-14.5); Segmented Neutrophils % 61.1 %; White Blood Count 9.7 K/mcL (4.3-11.1)
--- NOTE | 2018-11-10 08:56 | Anesthesia Evaluation PreOp ---
Date of Encounter: 11/10/18 Time of Encounter: 08:34 - Past History Planned Operation: labor epidural Cardiac History: Denies any Significant Hx Pulmonary History: Smoker (1 ppd for 10 years.), COPD (states has early stages of COPD.Has prn inhalers Xr, rarely uses.) RESIDENT SURGEON History: Denies Any Significant HX Other Medical History: Diabetes Type II (gestational diabetes, diet-controlled. States sugars are typically < 150.), Other (on subutex for approximately 8 months, denies drug use during this .) Anesthesia History: No Prior Anesthetic Complications, Past Anesthesia (right oopherectomy, no problems with GA. Has had 2 previous epidurals without problems. No FHAP.) : Yes Alcohol Use: none Drug use: other Medications and Allergies Vit/FA 1 each PO DAILY tablet 09/10/17 [Rx] Buprenorphine HCl [Subutex] 8 mg SL BID 10/06/18 [History] Allergy/AdvReac Type Severity Reaction Status Date / Time No Known Allergies Allergy Verified 11/10/18 08:25 - Meds/Allergy Pre-op Review Medications Reviewed: Yes Allergies Reviewed: Yes Beta Blockers on Current Med List: No Anesthesia Exam maternal VSS and FHTs stable. Weight: 68kg NPO (# of Hours): 2 Pain Scale: 3 Pain Scale Used: Numeric (1 - 10) - HEENT Pupil (Motor): Pupils equal, EOMI Mallampati: II Teeth: Normal (small chip upper front incisor. Also has tongue and nose piercing.) Oral Opening: Greater than 3 - RESIDENT SURGEON LOC: Oriented RESIDENT SURGEON Motor: Normal RUE, Normal LUE, Normal RLE, Normal LLE, Normal Face RESIDENT SURGEON Sensory: Normal: RUE, LUE, RLE, LLE, Face - Cardiac Rhythm: Regular - Pulmonary Breath Sounds: bilateral Clear Respiratory Effort: Symmetrical Anesthesia Assess/Plan ASA Score: 3 (smoker, early COPD, diet-controlled gestational diabetes, currently taking Subutex.) Level of consciousness: Cooperative, Oriented, Tranquil Anesthetic Plan: Epidural Monitoring Plan: Standard Monitors
[2018-11-10 09:03] LABS: Amphetamine Screen,Urine Negative ng/mL (Cutoff=1000); Barbiturate Screen,Urine Negative ng/mL (Cutoff=200); Benzodiazepines Screen,Urine Negative ng/mL (Cutoff=200); Cannabinoid Screen,Urine Negative ng/mL (Cutoff = 50); Cocaine Screen,Urine Negative ng/mL (Cutoff= 300); Opiate Screen,Urine Negative ng/mL (Cutoff=300); Phencyclidine Screen,Urine Negative ng/mL (Cutoff=25)
[2018-11-10] MEDS ORDERED: *HR* FentaNYL (PF) 100 MCG/2 ML VIAL ONE (09:35)
[2018-11-10] MEDS ORDERED: Lidocaine -MPF 2% 5 ML VIAL ONE (09:35)
[2018-11-10] MEDS ORDERED: Bupivacaine-MPF 0.25% 10 ML VIAL ONE (09:35)
[2018-11-10] MEDS ORDERED: Epidural Premix (fent/bupiv) 110 ML EP ONE (09:39)
[2018-11-10] MEDS ORDERED: Oxytocin 20 units/ LR 1000 mL 20 UNIT/1,000 ML BAG IVC ONE (10:34)
--- NOTE | 2018-11-10 10:41 | Anesthesia Procedures ---
Date of Encounter: 11/10/18 Time of Encounter: 09:41 Procedures: Anesthesia - Epidural/Spinal Patient ID/Chart reviewed: Yes Patient examined: Yes OB Eval: Gestational age: 39 OB Eval: : 3 OB Eval: Hx Para: 2 OB Eval: Dilated at (cm): 6 OB Eval: Contractions: Non-stressed pattern Consent Obtained: Yes Site Prep: Aseptic Technique, Sterile prep and drape, 0.5% Chlorhexidine/Alcohol Patient position: upright Local Anesthetic: Lidocaine 1% Amount of Local Anesthetic used: 3 Touhy Needle Gauge: 18 Touhy Needle Depth (cm): 5 Catheter Depth at Skin (cm): 10 Test Dose (1.5% Lido + Epi): Volume given (mls): 3 Test Dose Result: Negative Loading Dose: 0.25% Marcaine (mls): 8 Loading Dose: Fentanyl (mcg): 100 Loading Dose Administered: Thru Catheter Infusion Med: 0.125% Bupivacaine w/ 2 mcg/ml Fentanyl Infusion Rate (mls/hr): 12 (demand bolus 4ml q 2o mins with limit of 1.) Catheter Secured in Place: Tegaderm, Tape Interspace Used: L3-L4 Loss of Resistance (SHYLA): Yes Blood: No CSF: No Paresthesia: No Procedure: Performed DPE with 25g ben after entering epidural space. No medications injected into subarachnoid space. Vitals + FHT's: Vital Signs Time 0941 1004 1010 1015 1020 1025 BP 139/60 136/57 121/62 128/57 122/59 132/77 Pulse 89 88 68 75 68 68 FHTs 150 130 130 120 120 120
[2018-11-10] MEDS ORDERED: Epidural Premix (fent/bupiv) 110 ML EP SCH (10:45)
[2018-11-10] MEDS ORDERED: Lidocaine/EPI 1:200k 1% PF 10 ML VIAL ONE (10:51)
[2018-11-10] MEDS ORDERED: Lidocaine -MPF 1% 5 ML AMPUL ONE (10:52)
[2018-11-10] MEDS ORDERED: Rho Immune Globulin 1,500 UNIT SYRINGE IM PRN (11:26)
[2018-11-10] MEDS ORDERED: Acetaminophen 325 MG TABLET PO PRN (11:26)
[2018-11-10] MEDS ORDERED: Lanolin 7 G OINT...G. TP PRN (11:26)
[2018-11-10] MEDS ORDERED: Oxytocin 20 units/ LR 1000 mL 20 UNIT/1,000 ML BAG IVC SCH (11:26)
[2018-11-10] MEDS ORDERED: Benzocaine/Menthol 56 GM AEROSOL SPRAY TP PRN (11:26)
--- NOTE | 2018-11-10 11:34 | OB/GYN Procedure Note ---
Delivery - Delivery Date: 11/10/18 Provider: Mynor Bangura Intrapartum events: precipitous labor- <3hr Delivery augmentation: rupture of membranes Delivery monitor: external FHT, external uterine, internal FHT Anesthesia: epidural Quantitated Blood Loss: 100 - Infant (s) A Delivery Date: 11/10/18 Infant Delivery Time: 10:45 Presentation: vertex Position: STONEY Route of delivery: Gender: Female Viability: Viable Pounds: 6 Ounces: 5 Weight Gram: 2.875 kg at 1 minute: 7 at 5 mins: 9 Shoulder Dystocia: not encountered Specimens collected: cord blood Placenta: spontaneous Cord: nuchal cord, 3 umbilical vessels, nuchal cut - Repair Episiotomy: none Laceration Description: Perineal - 2nd Degree - Complications Delivery complications: none Delivery comments: Patient is a 28-year-old 3 para 1102 at 39-0/7 weeks who presented for induction of labor. Patient states she was seen over the weekend and was sent home 4-5 cm and has been yonathan ever since. On arrival to labor and delivery patient was already 6 cm 100% 0 station and bulging membranes. On admission patient was also noted to have bradycardia tones were down in the 90s but reassuring we did artificially rupture her and internalized her heart tones did return back into the 130s. She did not require any additional augmentation patient progressed appropriately. She did receive an epidural soon as an order was placed patient was be complete patient push twice delivering a viable female infant in left occiput anterior presentation at 1045. There was a nuchal cord 1 which was tight, was clamped and cut and the infant was fully delivered. Infant was bulb suctioned the abdomen cord blood was collected and the placenta was then delivered spontaneously 3 vessel cord. Gunnery/Ordnance Officer Dr. Bangura, anesthesia epidural local, estimated blood loss was 100 mL. She had a second-degree perineal laceration repaired with 3-0 Monocryl in usual fashion. Cervix and vagina was visualized intact. Patient tolerated the delivery well she will be observed 2 hours before being taken floor. - Disposition Mom disposition: stable in LDR [place] disposition: stable in LDR
[2018-11-10] MEDS: *HR* Buprenorphine HCl 8 MG TAB.SUBL SL SCH (21:40)
[2018-11-10] MEDS: Ibuprofen 600 MG TABLET PO PRN (21:40)
[2018-11-11 08:59] LABS: Basophils # 0.1 K/mcL (0.0-0.2); Basophils % 0.4 %; Eosinophils # 0.3 K/mcL (0.0-0.6); Eosinophils % 2.5 %; Hematocrit 32.1 % (35.3-44.9); Hemoglobin 9.6 g/dL (11.5-15.4); Immature Granulocytes % 0.9 % (0-4); Lymphocytes # 3.8 K/mcL (0.6-4.6); Lymphocytes % 31.9 %; Mean Corpuscular HGB Conc 29.9 g/dL (31.6-35.5); Mean Corpuscular Volume 80.3 fL (83.0-100.0); Monocytes # 0.9 K/mcL (0.0-1.3); Monocytes % 7.1 %; Neutrophils # 6.8 K/mcL (1.6-8.9); Platelet Count 211 K/mcL (140-400); Red Cell Distribution Width 14.6 % (11.5-14.5); Segmented Neutrophils % 57.2 %
[2018-11-11] MEDS: Prenatal Vit/FA 1 EACH TABLET PO SCH (09:19)
[2018-11-11] MEDS: *HR* Buprenorphine HCl 8 MG TAB.SUBL SL SCH ×2 (09:52→21:37)
[2018-11-11] MEDS ORDERED: Albuterol 2.5 MG/3 ML NEBULIZER IH ONE (09:58)
[2018-11-11] MEDS ORDERED: Ringers Solution, Lactated 1,000 ML IVC SCH (10:00)
--- NOTE | 2018-11-11 10:10 | Anesthesia Evaluation PreOp ---
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: Denies Any Significant HX Other Medical History: Diabetes Type II (gestational) Anesthesia History: No Prior Anesthetic Complications, Past Anesthesia (oophere ctomy, CLEW x3) : No Test: Negative Alcohol Use: none Drug use: other (subutex) Medications and Allergies Vit/FA 1 each PO DAILY tablet 09/10/17 [Rx] Buprenorphine HCl [Subutex] 8 mg SL BID 10/06/18 [History] Allergy/AdvReac Type Severity Reaction Status Date / Time No Known Allergies Allergy Verified 11/10/18 08:25 - Meds/Allergy Pre-op Review Medications Reviewed: Yes Allergies Reviewed: Yes Beta Blockers on Current Med List: No Anesthesia Results - Labs 11/11/18 08:25 11/10/18 08:07 Anesthesia Exam Vital Signs/O2 Sat, Most Current Temp Pulse Resp BP Pulse Ox 97.8 F 59 16 106/59 98 11/11/18 08:14 11/11/18 08:14 11/11/18 08:14 11/11/18 08:14 11/11/18 04:46 Height: 5'2" Weight: 65 NPO (# of Hours): 9 Pain Scale: 1 Pain Scale Used: Numeric (1 - 10) - HEENT Pupil (Motor): Pupils equal Mallampati: I Teeth: Normal Oral Opening: Greater than 3 - WORLD GEOGRAPHY TEACHER LOC: Oriented WORLD GEOGRAPHY TEACHER Motor: Normal RUE, Normal LUE, Normal RLE, Normal LLE, Normal Face WORLD GEOGRAPHY TEACHER Sensory: Normal: RUE, LUE, RLE, LLE, Face - Cardiac Rhythm: Regular Murmur: None - Pulmonary Breath Sounds: bilateral Clear Respiratory Effort: Symmetrical Anesthesia Assess/Plan ASA Score: 3 (smoker, COPD, subutex, DM) Level of consciousness: Cooperative Anesthetic Plan: General (risks discussed, questions answered, consented) Autologous Blood: No Monitoring Plan: Standard Monitors Recovery Plan: PACU
[2018-11-11] MEDS ORDERED: *HR* FentaNYL (PF) 100 MCG/2 ML VIAL ONE (12:38)
[2018-11-11] MEDS ORDERED: *HR* Propofol 200 MG/20 ML VIAL IVP ONE (12:39)
[2018-11-11] MEDS ORDERED: Dexamethasone 4 MG/ML VIAL ONE (12:40)
[2018-11-11] MEDS ORDERED: *HR* Rocuronium Bromide 50 MG/5 ML VIAL ONE (12:40)
[2018-11-11] MEDS ORDERED: Ondansetron 4 MG/2 ML VIAL ONE (12:40)
[2018-11-11] MEDS ORDERED: Lidocaine -MPF 2% 5 ML VIAL ONE (12:40)
[2018-11-11] MEDS ORDERED: ceFAZolin 2,000 MG in Water for inj. (sterile) 20 ML IVP ONE (12:48)
[2018-11-11] MEDS ORDERED: Lidocaine -MPF 1% 5 ML AMPUL ONE (12:59)
[2018-11-11] MEDS ORDERED: Acetaminophen IV 1,000 MG/100 ML INFUS..BTL IVPB ONE (13:11)
[2018-11-11] MEDS ORDERED: Ondansetron 4 MG/2 ML VIAL IVP PRN (13:11)
[2018-11-11] MEDS ORDERED: Neostigmine Methylsulfate 3 MG/3 ML SYRINGE ONE (13:14)
[2018-11-11] MEDS ORDERED: Ketorolac 30 MG/ML VIAL ONE (13:27)
[2018-11-11] MEDS ORDERED: Bupivacaine-MPF 0.25% 10 ML VIAL ONE (13:31)
--- NOTE | 2018-11-11 13:43 | OB/GYN Procedure Note ---
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 Patient is aware operative risks and permanence procedure and desires to proceed. Description procedure: Patient was taken operating room general anesthesia was administered. She is prepped draped in usual sterile fashion. Scalpel was used to make a small incision below the umbilicus this was sharply extended down to the fascia which was incised in incision was extended bilaterally. Peritoneum was entered sharply without difficulty. Left fallopian tube was identified approximate 4-5 similar segment distal left fallopian tube including the fimbria resected after double ligated with 20 plain catgut suture. This was then transected and removed. Right fallopian tube was identified and followed out to its fimbriated end the tube was double ligated and transected without difficulty. Fascia was closed in Vicryl running manner. F close the fascia again irrigation performed hemostasis was assured. Skin edges reapproximated with 4-0 Vicryl. All sponge and instruments counts are correct patient was taken recovery in good condition.
[2018-11-11] MEDS ORDERED: *HR* Buprenorphine HCl 2 MG SUBLINGUAL TABLET SL ONE (14:38)
[2018-11-11] MEDS ORDERED: *HR* Buprenorphine HCl 8 MG TAB.SUBL SL ONE (15:00)
--- NOTE | 2018-11-11 15:56 | Anesthesia Evaluation Post Op ---
Date of Encounter: 11/11/18 Time of Encounter: 15:55 - Vital Signs Vital Signs: Vital Signs/O2 Sat, Most Current Temp Pulse Resp BP Pulse Ox 98.0 F 54 16 121/74 93 11/11/18 14:45 11/11/18 14:45 11/11/18 14:45 11/11/18 14:45 11/11/18 14:45 - Lungs Lungs: Rhonchi (same as pre-op) - Airway Airway: Non-obstructed - Cardiovascular Regular Rate - Mental Status Mental Status: Alert & Oriented, Answers Appropriately - Pain Pain Scale: 4 Pain Scale used: Numeric (1 - 10) - Nausea Vomiting Nausea Vomiting: Not Present - Hydration Hydration: Tolerates oral liquids - Discharge PostOp Status: Transfer Patient to floor (fully awake, mod pain - suboxone order per Dr Rodas, no anesthetic complications)
[2018-11-11] MEDS: Ibuprofen 600 MG TABLET PO PRN (21:37)
[2018-11-12] MEDS: Prenatal Vit/FA 1 EACH TABLET PO SCH (08:02)
[2018-11-12] MEDS: Ibuprofen 600 MG TABLET PO PRN (08:02)
[2018-11-12] MEDS: *HR* Buprenorphine HCl 8 MG TAB.SUBL SL SCH (08:02)
[2018-11-12 09:25] VITALS: BP 126/77
--- NOTE | 2018-11-12 10:12 | Discharge Summary ---
Date of Encounter: 11/12/18 Time of Encounter: 10:10 - Discharge Diagnosis (1) Vaginal delivery Priority: Primary Status: Acute Comments: Patient meeting day two milestones. Pain well-controlled with prescribed medications. Voiding without difficulty, tolerating regular diet, bleeding light. No bowel movement yet. Anticipate discharge today. (2) Second degree perineal laceration Priority: Secondary Status: Acute Comments: Ice packs, Motrin, Dermoplast as needed for discomfort (3) Breast feeding status of mother Priority: Secondary Status: Acute Comments: support as needed. Patient states she has a breast pump at home. (4) anemia Priority: Secondary Status: Acute Comments: Patient is asymptomatic with a hemoglobin of 9.6. (5) Gestational diabetes Priority: Secondary Status: Acute Comments: Patient was diet controlled GDM. She is to follow-up for a 2 hour GTT between 4 and 12 weeks . Patient is notified she will need to be fasting for 8 hours prior to her 4 week follow-up appointment so she can complete GTT at that time. Qualifiers: Gestational diabetes mellitus control: diet-controlled Trimester: third trimester Qualified Code(s): O24.410 - Gestational diabetes mellitus in , diet controlled (6) Tubal ligation status Priority: Secondary Status: Acute Comments: Patient had a tubal ligation yesterday 11/11/[address] Rodas. She does complain of some slight redness below the umbilical incision today. She is instructed to contact the office prior to her 4 week appointment if she begins to have a fever, noticed purulent drainage from incision, or the area of redness increases. - Discharge Medications Prescriptions: New Acetaminophen [Tylenol] 650 mg PO Q6HR PRN tablet PRN Reason: Mild Pain Ibuprofen [Motrin] 600 mg PO Q6HR PRN #60 tablet PRN Reason: Cramping Benzocaine/Menthol Dudley [Dermoplast Dudley] 1 appl TP QID PRN aerosol PRN Reason: See Comments Lanolin [Lansinoh] 1 appl TP QID PRN oint...g. PRN Reason: Mupirocin [Bactroban Oint] 1 appl TP BID tube Continued Vit/FA 1 each PO DAILY tablet Buprenorphine HCl [Subutex] 8 mg SL BID Home Medications: Vit/FA 1 each PO DAILY tablet 09/10/17 [Rx] Buprenorphine HCl [Subutex] 8 mg SL BID 10/06/18 [History] Acetaminophen [Tylenol] 650 mg PO Q6HR PRN tablet 11/12/18 [Rx] Benzocaine/Menthol Dudley [Dermoplast Dudley] 1 appl TP QID PRN aerosol 11/12/18 [Rx] Ibuprofen [Motrin] 600 mg PO Q6HR PRN #60 tablet 11/12/18 [Rx] Lanolin [Lansinoh] 1 appl TP QID PRN oint...g. 11/12/18 [Rx] Mupirocin [Bactroban Oint] 1 appl TP BID tube 11/12/18 [Rx] Allergies/Adverse Reactions: Allergy/AdvReac Type Severity Reaction Status Date / Time No Known Allergies Allergy Verified 11/10/18 08:25 Data Procedures and tests throughout hospitalization: Laboratory Tests 11/10/18 11/10/18 11/10/18 08:07 08:25 08:25 WBC 9.7 RBC 4.51 Hgb 11.1 L Hct 35.3 MCV 78.3 L MCH 24.6 L MCHC 31.4 L RDW 14.8 H Plt Count 261 MPV 12.2 Immature Gran % 0.8 Seg Neutrophils % 61.1 Lymphocytes % 28.9 Monocytes % 6.8 Eosinophils % 2.0 Basophils % 0.4 Neutrophils # 5.9 Lymphocytes # 2.8 Monocytes # 0.7 Eosinophils # 0.2 Basophils # 0.0 Glucose 177 H Urine Opiates Screen Negative Ur Barbiturates Screen Negative Ur Phencyclidine Scrn Negative Ur Amphetamines Screen Negative U Benzodiazepines Scrn Negative Urine Cocaine Screen Negative U Marijuana (THC) Screen Negative Ur Drug Screen Interp See Below Baby's Blood Type Mother's Blood Type Rhogam Indicated 11/10/18 11/11/18 11:01 08:25 WBC 12.0 H RBC 4.00 Hgb 9.6 L D Hct 32.1 L MCV 80.3 L MCH 24.0 L MCHC 29.9 L RDW 14.6 H Plt Count 211 MPV 12.0 Immature Gran % 0.9 Seg Neutrophils % 57.2 Lymphocytes % 31.9 Monocytes % 7.1 Eosinophils % 2.5 Basophils % 0.4 Neutrophils # 6.8 Lymphocytes # 3.8 Monocytes # 0.9 Eosinophils # 0.3 Basophils # 0.1 Glucose Urine Opiates Screen Ur Barbiturates Screen Ur Phencyclidine Scrn Ur Amphetamines Screen U Benzodiazepines Scrn Urine Cocaine Screen U Marijuana (THC) Screen Ur Drug Screen Interp Baby's Blood Type A RH NEGATIVE Mother's Blood Type A RH NEGATIVE Rhogam Indicated NO Date of admission: 11/10/18 08:00 Primary care physician: Pascual Mcpherson DO Consults: 11/10/18 11:26 Consult to Program Director [employer] [CONS] Routine Comment: Vaginal delivery, consult needed Discharging clinician: Bessie Lehman Anticipated date of discharge: 11/12/18 - Patient Status Disposition: Home, Self-Care Condition: Good Functional capacity at discharge: independent ambulation Overall status at discharge: patient is progressing back to baseline - Discharge Instructions Follow Up With: Pascual Mcpherson DO [Primary Care Provider] - Mynor Bangura DO [Partnered Physician] - - Diet and Activity Activity: resume usual activities as tolerated Diet: regular diet Hospital Course Reason for admission: induction of labor Delivery: Episiotomy: none Laceration: none Other procedures: tubal ligation complications: none Discharge diagnosis: IUP at term delivered [place] baby: female Hospital course: Doing well status post tubal ligation. Delivery Date: 11/10/18 Provider: Mynor Bangura Intrapartum events: precipitous labor- <3hr Delivery augmentation: rupture of membranes Delivery monitor: external FHT, external uterine, internal FHT Anesthesia: epidural Quantitated Blood Loss: 100 - (s) Infant A Delivery Date: 11/10/18 Delivery Time: 10:45 Presentation: vertex Position: STONEY Route of delivery: Gender: Female Viability: Viable Pounds: 6 Ounces: 5 Weight Gram: 2.875 kg at 1 minute: 7 at 5 mins: 9 Shoulder Dystocia: not encountered Specimens collected: cord blood Placenta: spontaneous Cord: nuchal cord, 3 umbilical vessels, nuchal cut - Repair Episiotomy: none Laceration Description: Perineal - 2nd Degree - Complications Delivery complications: none Delivery comments: Patient is a 28-year-old 3 para 1102 at 39-0/7 weeks who presented for induction of labor. Patient states she was seen over the weekend and was sent home 4-5 cm and has been yonathan ever since. On arrival to labor and delivery patient was already 6 cm 100% 0 station and bulging membranes. On admission patient was also noted to have bradycardia tones were down in the 90s but reassuring we did artificially rupture her and internalized her heart tones did return back into the 130s. She did not require any additional augmentation patient progressed appropriately. She did receive an epidural soon as an order was placed patient was be complete patient push twice delivering a viable female infant in left occiput anterior presentation at 1045. There was a nuchal cord 1 which was tight, was clamped and cut and the was fully delivered. Infant was bulb suctioned the abdomen cord blood was collected and the placenta was then delivered spontaneously [address] Bangura, anesthesia epidural local, estimated blood loss was 100 mL. She had a second-degree perineal laceration repaired with 3-0 Monocryl in usual fashion. Cervix and vagina was visualized intact. Patient tolerated the delivery well she will be observed 2 hours before being taken floor. - Disposition Mom disposition: stable in LDR disposition: stable in LDR Time Attestation: Total time spent providing and/or coordinating discharge services: Time Spent: Less than 30 minutes Exam - Constitutional Vitals: Temp Pulse Resp BP Pulse Ox 98.5 F 55 16 126/77 98 11/12/18 09:24 11/12/18 09:24 11/12/18 09:24 11/12/18 09:24 11/11/18 21:30 General appearance IM: A&O X 3 - Respiratory Respiratory exam: Absent: respiratory distress - Cardiovascular Cardiovascular exam IM: Present: RRR. Absent: irregular rhythm - GI/Abdominal GI/Abdominal exam IM: normal bowel sounds, soft Incision: normal, dry, intact - Rectal Rectal exam: deferred - Uterine Tone: Firm Uterus Position: 1 Finger Below Umbilicus, Midline - Extremities Exam Extremities exam IM: Present: normal capillary refill, normal inspection. Absent: calf tenderness - Neurological Exam Neurological exam: alert, normal gait, oriented X3
== END 2018-11-12 12:57 | disposition home or self-care (01) | DRG 541 ==
LOC: 1NENULAB 08:00 → 1NENUOBS 13:06
PROVIDERS: ADMIT Obstetrics & Gynecology; ATTEND Obstetrics & Gynecology